=== PATIENT | female | born 1995 | race Caucasian/White ===

== ENCOUNTER 2017-02-14 11:23 | Emergency (ER) | payer BC, OTHER ==
[2017-02-14 11:29] VITALS: PULSE 59
--- NOTE | 2017-02-14 12:31 | ED ---
General Adult HPI - General Chief complaint: Chest Pain Stated complaint: chest pain Time Seen by Provider: 02/14/17 11:38 Source: patient, RN notes reviewed Mode of arrival: ambulatory Limitations: no limitations - History of Present Illness Initial comments: 21-year-old female presents to the emergency department with a chief complaint of chest pain. Patient states that she is having this stabbing chest pain to the center of her chest. Patient states that it comes and goes. There is no rhyme or reason when it comes and goes. There is no shortness of breath. There is no nausea. There is no vomiting. There is no fever chills. The patient is otherwise been well. They went [facility] and they were referred here for continued care. There is no significant health history no long trips or travel. No use of control. Patient this time has no discomfort.Patient denies any recent fever, chills, shortness of breath, back pain, abdominal pain, nausea vomiting, numbness or tingling, dysuria or hematuria, constipation or diarrhea, headaches or visual changes, or any other current symptoms. - Related Data Home Medications Medication Instructions Recorded Confirmed Acetaminophen Tab [Tylenol Tab] 650 mg PO Q6HR PRN 02/14/17 02/14/17 Allergies Allergy/AdvReac Type Severity Reaction Status Date / Time kimble flavor Allergy Rash/Hives Verified 02/14/17 11:32 Review of Systems ROS Statement: Those systems with pertinent positive or pertinent negative responses have been documented in the HPI. ROS Other: All systems not noted in ROS Statement are negative. Past Medical History Past Medical History: Hearing Disorder / Deafness Additional Past Medical History / Comment(s): Mild cognitive impairment History of Any Multi-Drug Resistant Organisms: None Reported Past Surgical History: Adenoidectomy, Tonsillectomy Additional Past Surgical History / Comment(s): cochlear implant Past Psychological History: No Psychological Hx Reported Smoking Status: Never smoker Past Alcohol Use History: None Reported Past Drug Use History: None Reported General Exam - General Exam Comments Initial Comments: General: The patient is awake and alert, in no distress, and does not appear acutely ill. Eye: Pupils are equal, round. Ears, nose, mouth and throat: There are moist mucous membranes. Neck: The neck is supple, there is no tenderness. Cardiovascular: There is a regular rate and rhythm. No murmur, rub or gallop is appreciated. Respiratory: Lungs are clear to auscultation, respirations are non-labored, breath sounds are equal. No wheezes, stridor, rales, or rhonchi. Gastrointestinal: Soft, non-distended, non-tender abdomen without masses or organomegaly noted. There is no rebound or guarding present. No CVA tenderness. Bowel sounds are unremarkable. Back: There is no tenderness to palpation in the midline. There is no obvious deformity. No rashes noted. Musculoskeletal: Normal ROM, no tenderness, There is no pedal edema. There is no calf tenderness or swelling. Sensation intact. Pulses equal bilaterally 2+. Neurological: CN II-XII intact, There are no obvious motor or sensory deficits. Coordination appears grossly intact. Speech is normal. Skin: Skin is warm and dry and no rashes or lesions are noted. Psychiatric: Cooperative, appropriate mood & affect, normal judgment. Limitations: no limitations Course Vital Signs 02/14/17 02/14/17 11:26 12:29 Temperature 97.9 F Pulse Rate 59 L 59 L Respiratory 18 16 Rate Blood Pressure 154/77 116/56 O2 Sat by Pulse 100 99 Oximetry EKG Findings - EKG Comments: EKG Findings:: normal sinus rhythm with sinus arrhythmia 67 bpm, normal axis, no atopy, no S-T depressions or elevations, Medical Decision Making - Medical Decision Making 21-year-old female presents to the emergency department with a chief complaint of chest pain. This time EKG has been reviewed. This time chest x-rays negative. We discussed possible causes for the chest discomfort. We did discuss follow-up with her doctor we did discuss return parameters outpatient family's questions. They stated the [facility] management this plan. All questions have been answered. They will be discharged. - Radiology Data Radiology results: report reviewed, image reviewed Disposition Clinical Impression: Atypical chest pain Disposition: HOME SELF-CARE Condition: Stable Instructions: Chest Pain (ED) Additional Instructions: Please use medication as discussed. Please follow up with family doctor if symptoms have not improved over the next two days. Please return to the emergency room if your symptoms increase or worsen or for any other concerns. Referrals: Wilberto Young MD [Primary Care Provider] - 1-2 days Time of Disposition: 12:45
[2017-02-14 12:38] VITALS: BP 116/56; RESP 16
--- NOTE | 2017-02-14 12:42 | XR ---
EXAMINATION TYPE: XR chest 2V DATE OF EXAM: 02/14/2017 COMPARISON: 02/11/2002 HISTORY: Cough TECHNIQUE: Frontal and lateral views of the chest are obtained. FINDINGS: There is no focal air space opacity. No evidence for pneumothorax. No pleural effusion. The cardiac silhouette size is within normal limits. The osseous structures are grossly intact. IMPRESSION: 1. No acute cardiopulmonary process.
[2017-02-14 12:55] VITALS: TEMP 98.3
== END 2017-02-14 12:57 | disposition home or self-care (01) ==
LOC: EC 11:23
DX: R07.89 Other chest pain (principal); Z91.018 Allergy to other foods
CPT/HCPCS: 71020; 93005; 99285

== ENCOUNTER 2017-10-13 09:18 | Emergency (ER) | payer OTHER, BC ==
[2017-10-13 09:23] VITALS: BP 126/77; PULSE 101; RESP 20; TEMP 98.5
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
== END 2017-10-13 10:12 | disposition home or self-care (01) ==
LOC: EC 09:18
DX: S40.012A Contusion of left shoulder, initial encounter (principal); M54.2 Cervicalgia; G31.84 Mild cognitive impairment of uncertain or unknown etiology; H91.90 Unspecified hearing loss, unspecified ear; Z91.02 Food additives allergy status; V73.6XXA Passenger on bus injured in collision with car, pick-up truck or van in traffic accident, initial encounter; Y92.410 Unspecified street and highway as the place of occurrence of the external cause
CPT/HCPCS: 72040; 99284

== ENCOUNTER 2019-08-06 18:58 | Emergency (ER) | payer BC, OTHER ==
[2019-08-06 19:04] VITALS: BP 149/81; PULSE 57; RESP 16; TEMP 99.7
[2019-08-06] MEDS ORDERED: IBUPROFEN 400 MG TAB PO STA (19:18)
--- NOTE | 2019-08-06 19:21 | ED ---
General Adult HPI - General Chief complaint: Extremity Injury, Upper Stated complaint: [facility] Lt ring finger injury Time Seen by Provider: 08/06/19 19:10 Source: patient Mode of arrival: ambulatory Limitations: no limitations - History of Present Illness Initial comments: Patient is a 23-year-old female presenting to emergency Department with a chief complaint of finger pain. Patient reports she was at work when she was carrying a food cart and a finger got stuck between the wall and a full code. Patient reports the pain is located on the left fourth digit. The pain is mostly located in the middle phalange. Patient reports pain with flexion. Does report limited range of motion due to pain. Patient reports some ecchymosis in the region along with mild swelling. Denies taking medication to alleviate the symptoms. Denies any numbness or tingling. She reports incident occurred about one hour prior to arrival - Related Data Previous Rx's Medication Instructions Recorded Ibuprofen 600 mg PO TID #20 tablet 10/13/17 Allergies Allergy/AdvReac Type Severity Reaction Status Date / Time kimble flavor Allergy Rash/Hives Verified 08/06/19 19:04 Review of Systems ROS Statement: Those systems with pertinent positive or pertinent negative responses have been documented in the HPI. ROS Other: All systems not noted in ROS Statement are negative. Past Medical History Past Medical History: Hearing Disorder / Deafness Additional Past Medical History / Comment(s): Mild cognitive impairment History of Any Multi-Drug Resistant Organisms: None Reported Past Surgical History: Adenoidectomy, Tonsillectomy Additional Past Surgical History / Comment(s): cochlear implant Past Psychological History: No Psychological Hx Reported Smoking Status: Never smoker Past Alcohol Use History: None Reported Past Drug Use History: None Reported General Exam Limitations: no limitations General appearance: alert, in no apparent distress Head exam: Present: atraumatic, normocephalic, normal inspection Eye exam: Present: normal appearance, PERRL, EOMI Pupils: Present: normal accommodation ENT exam: Present: normal exam Neck exam: Present: normal inspection, full ROM Respiratory exam: Present: normal lung sounds bilaterally Cardiovascular Exam: Present: regular rate, normal rhythm, normal heart sounds Extremities exam: Present: tenderness (Tenderness at the site of injury), normal capillary refill, other (+2 ulnar and radial pulses bilaterally.). Absent: normal inspection (Mild ecchymosis with swelling at the middle phalange of the left fourth digit.), full ROM (Limited range of motion of the left fourth digit due to pain.), joint swelling (No damage or injury to the PIP or DIP of the left fourth digit) Back exam: Present: normal inspection, full ROM Neurological exam: Present: alert, oriented X3 Psychiatric exam: Present: normal affect, normal mood Skin exam: Present: warm, dry, intact, normal color Course Vital Signs 08/06/19 18:59 Temperature 99.7 F H Pulse Rate 57 L Respiratory 16 Rate Blood Pressure 149/81 O2 Sat by Pulse 98 Oximetry Medical Decision Making - Medical Decision Making Patient is a 23-year-old male presenting to emergency Department with a chief complaint of finger pain. On examination patient has limited range of motion of the left fourth digit due to pain. She also has mild swelling and ecchymosis on the left middle phalange. No trauma to the left fourth digit PIP or DIP. Patient is neurovascularly intact. X-ray reveals no signs of fractures or dislocations. A splint is applied. Patient advised to alternate between Tylenol and Motrin for pain control. Patient advised to apply ice compress to minimize symptoms. Return parameters discussed. Case discussed with physician. Disposition Clinical Impression: Finger contusion Disposition: HOME SELF-CARE Condition: Stable Instructions (If sedation given, give patient instructions): T[place] (ED) Additional Instructions: Apply ice compress. Return to emergency department if symptoms worsen. Alternate between Tylenol Motrin for pain control. Is patient prescribed a controlled substance at d/c from ED?: No Referrals: Wilberto Young MD [Primary Care Provider] - 1-2 days Time of Disposition: 19:40
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
== END 2019-08-06 19:41 | disposition home or self-care (01) ==
LOC: EC 18:58
DX: S60.042A Contusion of left ring finger without damage to nail, initial encounter (principal); Z91.018 Allergy to other foods; W23.0XXA Caught, crushed, jammed, or pinched between moving objects, initial encounter; Y92.69 Other specified industrial and construction area as the place of occurrence of the external cause; Y99.0 Civilian activity done for income or pay
CPT/HCPCS: 99283

== ENCOUNTER → 2019-08-15 | Outpatient (CLI) | payer OTHER ==
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
== END | disposition home or self-care (01) ==
LOC: RADXRMAIN 13:56
PROVIDERS: ATTEND Emergency Medicine
DX: S60.042A Contusion of left ring finger without damage to nail, initial encounter (principal)

== ENCOUNTER 2023-11-08 08:05 | Day surgery (SDC) | payer BC, MEDICARE, OTHER ==
[2023-11-08] MEDS ORDERED: LACTATED RINGERS 1,000 ML BAG ONE (09:10)
[2023-11-08] MEDS ORDERED: DEXAMETHASONE SOD PHOSPHATE 4 MG/ML 1 ML VIAL ONE ×2 (09:16)
[2023-11-08] MEDS ORDERED: ONDANSETRON 4 MG/2 ML VIAL ONE ×2 (09:16)
[2023-11-08] MEDS ORDERED: fentaNYL (PF) 50 MCG/ML 2 ML AMP ONE (09:57)
[2023-11-08] MEDS ORDERED: KETOROLAC 15 MG/ML 1 ML VIAL ONE (09:57)
[2023-11-08] MEDS ORDERED: PROPOFOL 10 MG/ML 20 ML VIAL IV ONE (09:57)
[2023-11-08] MEDS ORDERED: ePHEDrine 50 MG/ML 1 ML VIAL ONE (09:57)
[2023-11-08] MEDS ORDERED: LIDOCAINE 1% INJ 10MG/ML (20 ML MDV) ONE (09:57)
[2023-11-08] MEDS ORDERED: GLYCOPYRROLATE 0.2 MG/ML 2 ML VIAL ONE (09:57)
--- NOTE | 2024-01-23 11:56 | P.OP ---
Date of Procedure: 11/08/23 Preoperative Diagnosis: Endometrial polyp Postoperative Diagnosis: Same Procedure(s) Performed: Hysteroscopy, dilation and curettage, polypectomy Anesthesia: MAC Surgeon: Janet Salas Estimated Blood Loss (ml): 25 IV fluids (ml): 300 Urine output (ml): 100 Pathology: other (Endometrial polyp, endometrial curettings) Condition: stable Disposition: PACU Indications for Procedure: Large endometrial polyp appreciated at the cervical os Operative Findings: Large cervical polyp appreciated on exam normal uterine size no adnexal masses appreciated Description of Procedure: Patient was taken back to the operating suite where general anesthesia was obtained without difficulty by the anesthesia department. She was prepped and draped in normal sterile fashion in the dorsolithotomy position. A right upper catheter was used to drain the bladder of clear yellow urine. Weighted speculum was placed in the posterior vaginal vault, large polyp was appreciated the cervical opening a ring forcep was used to grasp the polyp and rotated off its base. A sharp curettage was performed after removal of polyp until gritty texture was noted in all 4 quadrants, hysteroscopy was aborted secondary to bleeding from procedure. Single-tooth tenaculum was taken off of the anterior lip of the cervix hemostasis was appreciated. All instruments were then removed from the patient's vaginal vault. All counts were noted be correct x 2 at the end of the procedure. Patient tolerated procedure well and was taken the recovery room awake in stable condition.
== END 2023-11-08 11:47 ==
LOC: OR 08:05
PROVIDERS: ATTEND Obstetrics & Gynecology Obstetrics
DX: N84.0 Polyp of corpus uteri (principal); N84.1 Polyp of cervix uteri; J45.909 Unspecified asthma, uncomplicated; F84.0 Autistic disorder; H91.90 Unspecified hearing loss, unspecified ear; Z79.899 Other long term (current) drug therapy
CPT/HCPCS: 81025; 88305; 58558; J1100; J2405; J2001; J3010; J1885; J2704; J1596